=== PATIENT | male | born 2005 | race Caucasian/White ===

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

== ENCOUNTER 2024-05-27 03:21 | Emergency (ER) | payer OTHER ==
[~2024-05-27] VITALS: Ht 162.6 cm; Wt 63.5 kg
[~2024-05-27 03:21] MED LIST changes: +IBUP600 PO
[2024-05-27 04:41] LABS: BASOPHILS ABSOLUTE AUTO 0.03 K/mm3 (0.00-0.23); BASOPHILS PERCENT AUTO 1 % (0-2); EOSINOPHILS ABSOLUTE AUTO 0.11 K/mm3 (0.00-0.68); EOSINOPHILS PERCENT AUTO 2 % (0-6); Hematocrit 42.7 % (37.0-53.0); Hemoglobin 14.3 g/dL (13.5-17.5); IMMATURE GRAN ABSOLUTE AUTO 0.01 K/mm3 (0.00-0.10); IMMATURE GRAN PERCENT AUTO 0 % (0-1); LYMPHOCYTES ABSOLUTE AUTO 2.83 K/mm3 (0.84-5.20); LYMPHOCYTES PERCENT AUTO 48 % (21-46); MONOCYTES ABSOLUTE AUTO 0.48 K/mm3 (0.16-1.47); MONOCYTES PERCENT AUTO 8 % (4-13); Mean Corpuscular HGB 29.1 pg (26.0-34.0); Mean Corpuscular HGB Conc 33.5 g/dL (31.5-36.5); Mean Corpuscular Volume 87 fL (80-100); Mean Platelet Volume 9.3 fL (9.1-12.4); NEUTROPHILS ABSOLUTE AUTO 2.43 K/mm3 (1.96-9.15); NEUTROPHILS PERCENT AUTO 41 % (41-73); Platelet Count 272 K/mm3 (150-400); RDW Coefficient Variation 12.5 % (11.7-14.2); RDW Standard Deviation 39.8 fL (35.1-46.3); Red Blood Cell Count 4.92 M/mm3 (4.30-5.90); White Blood Cell Count 5.89 K/mm3 (4.00-11.30)
[2024-05-27 05:01] LABS: Albumin, Blood 4.7 g/dL (3.4-5.0); Albumin/Globulin Ratio 1.3 (0.8-1.8); Bilirubin, Total 0.7 mg/dL (0.1-1.0); Bun/Creatinine Ratio 18.4 (12.0-20.0); Calcium, Blood 9.5 mg/dL (8.5-10.1); Creatinine, Blood 0.87 mg/dL (0.60-1.20); Globulin, Blood 3.5 g/dL (2.2-4.0); Potassium, Blood 3.7 mmol/L (3.5-5.5); Total Protein, Blood 8.2 g/dL (6.4-8.2)
[2024-05-27 05:42] LABS: Source, Urine Clean Catch
[2024-05-27 05:51] LABS: Appearance, Urine Clear (Clear); Bilirubin, Urine Neg (Neg); Blood, Urine Neg (Neg); Color, Urine Yellow (P-Yellow); Glucose Qualitative, Urine Neg (Neg); Ketones, Urine Neg (Neg); Leukocyte Esterase, Urine Neg (Neg); Nitrite, Urine Neg (Neg); Protein, Urine Neg (Neg); Urobilinogen, Urine NORM (Normal)
[2024-05-27 06:35] VITALS: BP 109/75
== END 2024-05-27 06:37 | disposition home or self-care (01) ==
LOC: ER 03:21
PROVIDERS: Emergency Medicine
DX: K40.90 Unilateral inguinal hernia, without obstruction or gangrene, not specified as recurrent (principal); J45.909 Unspecified asthma, uncomplicated
CPT/HCPCS: 80053; 81003; 85025; 99284

== ENCOUNTER 2024-10-19 06:19 | Day surgery (SDC) | payer OTHER ==
[~2024-10-19] VITALS: Ht 162.6 cm; Wt 62.5 kg
[2024-10-19] VITALS (14 sets, daily range): BP systolic 108–134; BP diastolic 53–90
[2024-10-19] MEDS ORDERED: Lactated Ringer's 1,000 ML IV SCH (06:25)
[2024-10-19] MEDS ORDERED: IBUP400 PO (06:47)
[2024-10-19] MEDS ORDERED: Bupivacaine 0.5% HCl 5 MG/ML 30MLVIAL ONE (06:58)
[2024-10-19] MEDS ORDERED: FentaNYL Citrate 50 MCG/ML 2 ML Injection ONE ×2 (07:15→09:45)
[2024-10-19] MEDS ORDERED: propofoL 20 ML IV ONE (07:15)
[2024-10-19] MEDS ORDERED: Midazolam HCl 1MG / ML 2ML Vial ONE (07:15)
[2024-10-19] MEDS ORDERED: Lidocaine HCl 2% 20 ML MDV ONE (07:16)
[2024-10-19] MEDS ORDERED: Ondansetron HCl 2 MG / ML 2ML Vial ONE (07:16)
[2024-10-19] MEDS ORDERED: Rocuronium Bromide 10 MG/ML 5ML Injection IV ONE (07:16)
[2024-10-19] MEDS ORDERED: Dexamethasone Sod Phos 10 MG/ML 1ML VIAL ONE (07:16)
[2024-10-19] MEDS ORDERED: Lidocaine HCl 2% Jelly 120MG/6ML SYR (20MG PER ML) ONE (07:22)
--- NOTE | 2024-10-19 07:28 | NUR ---
0630 ANBULATE TO [facility], CONFIRMED SURGERY AND SURGEON, MOTHER AT SIDE. PRE OP TEACHING DONE. NOSE PEIRCING TAPED CONSENT SIGHNED.
[2024-10-19] MEDS ORDERED: Prochlorperazine Edisylate 10 mg Vial IV PRN (07:45)
[2024-10-19] MEDS ORDERED: HYDROmorphone HCl 0.5 MG/0.5 ML SYR IV PRN ×2 (07:45→07:50)
[2024-10-19] MEDS ORDERED: Phenylephrine HCl 100 MCG/ML-NS 10MLSYR (1MG/10ML) ONE (07:45)
[2024-10-19] MEDS ORDERED: Ondansetron HCl 2 MG / ML 2ML Vial IV PRN (07:45)
[2024-10-19] MEDS ORDERED: CeFAZolin Sodium 2,000 MG VIAL ONE (07:46)
[2024-10-19] MEDS ORDERED: FentaNYL Citrate 50 MCG/ML 2 ML Injection IV PRN ×2 (07:50)
[2024-10-19] MEDS ORDERED: Albuterol 2.5 MG/3 ML VIAL INH PRN (07:50)
[2024-10-19] MEDS ORDERED: HYDROmorphone HCl 0.5 MG/0.5 ML SYR ONE (07:50)
[2024-10-19] MEDS ORDERED: Sugammadex Sodium 200 MG/2ML SDV (100 MG/ML) ONE (09:17)
[2024-10-19] MEDS ORDERED: OxyCODONE 5 mg/Acetamin 325 mg TABLET PO PRN (09:50)
--- NOTE | 2024-10-19 10:46 | NUR ---
1012RECEIVED PT FROM PACU, PT SLEEPY,VSS, HAS 3 MID LINE ABDOMINAL INCISIONS W/ SKIN GLUE D&I. VSS ICE PACK TO SURGERY SITS. WATER AND CRACKERS GIVEN MELISSA WELL. 1030 PO PAIN MED GIVEN
== END 2024-10-19 11:45 | disposition home or self-care (01) ==
LOC: ORSCMMR 06:19 → ORD 07:30 → ORSCMMR 11:45
PROVIDERS: Surgery
PROC: 3E0T3BZ Introduction of Anesthetic Agent into Peripheral Nerves and Plexi, Percutaneous Approach (ICD-10-PCS; principal; 2024-10-19 07:30)
PROC: 0YUA4JZ Supplement Bilateral Inguinal Region with Synthetic Substitute, Percutaneous Endoscopic Approach (ICD-10-PCS; principal; 2024-10-19 07:30)
PROC: 8E0W4CZ Robotic Assisted Procedure of Trunk Region, Percutaneous Endoscopic Approach (ICD-10-PCS; principal; 2024-10-19 07:30)
DX: K40.20 Bilateral inguinal hernia, without obstruction or gangrene, not specified as recurrent (principal); K66.0 Peritoneal adhesions (postprocedural) (postinfection); J45.909 Unspecified asthma, uncomplicated; Z79.51 Long term (current) use of inhaled steroids
CPT/HCPCS: A9270; C1781; J0690; J1100; J1171; J2250; J2371; J2405; J2704; J3010; J7120

== ENCOUNTER 2025-02-20 14:22 | Emergency (ER) | payer OTHER ==
[~2025-02-20] VITALS: Ht 162.6 cm; Wt 60.3 kg
[~2025-02-20 14:22] MED LIST changes: +FAMO20 PO; +IBUP400 PO
[2025-02-20 14:29] VITALS: BP 135/79
[2025-02-20] MEDS ORDERED: Ketorolac Tromethamine 30mg Vial IM ONE (14:50)
[2025-02-20] MEDS ORDERED: NAPR500 PO (15:25)
[2025-02-20] MEDS ORDERED: PRED20 PO (15:25)
[2025-02-21] MEDS ORDERED: AMOCLA875 PO (05:42)
== END 2025-02-20 15:42 | disposition home or self-care (01) ==
LOC: ER 14:22
DX: M46.1 Sacroiliitis, not elsewhere classified (principal); M54.42 Lumbago with sciatica, left side; J45.909 Unspecified asthma, uncomplicated; Z79.1 Long term (current) use of non-steroidal anti-inflammatories (NSAID); Z79.899 Other long term (current) drug therapy; Z90.89 Acquired absence of other organs
CPT/HCPCS: 72100; 76857; 96372; 99283-25; J1885

== ENCOUNTER 2025-02-21 04:34 | Emergency (ER) | payer OTHER ==
[~2025-02-21] VITALS: Ht 162.6 cm; Wt 61.2 kg
[~2025-02-21 04:34] MED LIST changes: +NAPR500 PO; +PRED20 PO
[2025-02-21 04:50] VITALS: BP 142/72
[2025-02-21] MEDS ORDERED: AMOCLA875 PO (05:42)
== END 2025-02-21 06:02 | disposition home or self-care (01) ==
LOC: ER 04:34
DX: J01.80 Other acute sinusitis (principal); B96.89 Other specified bacterial agents as the cause of diseases classified elsewhere; H53.8 Other visual disturbances; J45.909 Unspecified asthma, uncomplicated; Z79.52 Long term (current) use of systemic steroids; Z79.899 Other long term (current) drug therapy
CPT/HCPCS: 99283; A9270

== ENCOUNTER 2025-03-09 20:50 | Emergency (ER) | payer OTHER ==
[~2025-03-09] VITALS: Ht 162.6 cm; Wt 59.0 kg
[~2025-03-09 20:50] MED LIST changes: +AMOCLA875 PO
[2025-03-09 21:11] VITALS: BP 129/65
[2025-03-09] MEDS ORDERED: DOXY100 PO (22:15)
== END 2025-03-09 22:17 | disposition home or self-care (01) ==
LOC: ER 20:50
DX: R51.9 Headache, unspecified (principal); R53.1 Weakness; Z76.0 Encounter for issue of repeat prescription; Z79.899 Other long term (current) drug therapy; Z79.2 Long term (current) use of antibiotics
CPT/HCPCS: 99283